=== PATIENT | female | born 1965 | race Caucasian/White ===

== ENCOUNTER 2016-12-29 20:42 | Emergency (ER) | payer OTHER ==
[~2016-12-29] VITALS: Ht 160 cm; Wt 104.6 kg
[~2016-12-29 20:42] MED LIST: ADVIL200 MG PO; BENZONATATE100 MG PO; FLONASE16 G1 BOTH NARES; GUAIFENESI100 MG/5 M PO; LEVOFLOXACIN500 MG PO; LEXAPRO10 MG PO; MONTELUKAST SOD10 MG PO; PREDNISONE10 M1 PO; PROAIR HFA8.5 GM IH; SYMBICORT60 INHALAT IH; VALSARTAN-HCTZ1 EACH PO
[2016-12-29 22:44] LABS: MCH 27.2 PG (29.0-34.0); MCHC 32.3 G/DL (30.0-36.0); MCV 84.3 FL (83-99); MEAN PLAT.VOLUME 8.6 uM^3 (9.5-12.4); PLATELET COUNT 339 K/uL (156-360); RBC DIS.WIDTH-CV 13.2 % (11.8-14.6); RBC DIS.WIDTH-SD 40.8 % (39-53); RED BLOOD COUNT 5.22 M/uL (3.80-5.20); WHITE BLOOD COUNT 9.2 K/uL (4.1-10.2)
[2016-12-29 22:55] LABS: CHLORIDE 102 mEq/L (99-109); POTASSIUM 3.8 mEq/L (3.7-5.4); SODIUM 138 mEq/L (136-147)
[2016-12-29 22:57] LABS: GLUCOSE 107 mg/dL (70-99)
[2016-12-29 22:58] LABS: ANION GAP 10 MEQ/L (2-14)
[2016-12-29 23:01] LABS: GFR ESTIMATE (CALCULATED) > 59 mL/min/
[2016-12-29 23:02] LABS: UREA NITROGEN (BUN) 18 mg/dL (9-23)
[2016-12-30 00:23] LABS: D-DIMER ELISA < 150.00 ng/mLDDU (<230)
[2016-12-30 02:02] VITALS: BP 125/90
== END 2016-12-30 02:03 | disposition home or self-care (01) ==
LOC: EME 20:42
DX: R42 Dizziness and giddiness (principal); I10 Essential (primary) hypertension; J45.909 Unspecified asthma, uncomplicated; K21.9 Gastro-esophageal reflux disease without esophagitis
CPT/HCPCS: 70450; 71020; 80048; 85027; 85379; 93005; 99281; 99283; J1100

== ENCOUNTER 2017-01-14 12:21 | Day surgery (SDC) | payer OTHER ==
[~2017-01-14] VITALS: Ht 154.9 cm; Wt 112.8 kg
[~2017-01-14 12:21] MED LIST changes: +DIOVAN80 MG PO; +LOPRESSOR25 MG PO; +VITAMIN D2000 UNIT PO
[2017-01-14 13:34] VITALS: BP 122/79
[2017-01-14 13:43] VITALS: BP 122/79
[2017-01-14 20:01] VITALS: BP 133/90
[2017-01-14 23:35] VITALS: BP 119/69
[2017-01-15 03:00] VITALS: BP 114/53
[2017-01-15 07:11] VITALS: BP 109/56
== END 2017-01-15 09:22 | disposition home or self-care (01) ==
LOC: SDC 12:21 → EDSTATUS 14:09 → SDC 14:13 → 2SOUTH 15:15 → 2EAST 18:25 → 2SOUTH 18:25 → ENRESERV 18:58 → 2EAST 19:56
DX: M48.02 Spinal stenosis, cervical region (principal); M50.022 Cervical disc disorder at C5-C6 level with myelopathy; R20.9 Unspecified disturbances of skin sensation; M25.78 Osteophyte, vertebrae; I10 Essential (primary) hypertension; E66.01 Morbid (severe) obesity due to excess calories; Z68.42 Body mass index [BMI] 45.0-49.9, adult; J45.909 Unspecified asthma, uncomplicated; K21.9 Gastro-esophageal reflux disease without esophagitis; R94.31 Abnormal electrocardiogram [ECG] [EKG]; R53.1 Weakness; Z88.0 Allergy status to penicillin
CPT/HCPCS: 72020; 76000; 86850; 86900; 86901; 95938; C1713; G0378; J1100; J1170; J2250; J2405; J2550; J2765; J3010; J3370; J3480; J7120; Q0175